=== PATIENT | male | born 1955 | race Caucasian/White ===

== ENCOUNTER 2017-01-18 02:54 | Emergency (ER) | payer MEDICARE, OTHER ==
[~2017-01-18] VITALS: Ht 185.4 cm; Wt 120.8 kg
[~2017-01-18 02:54] MED LIST: ASPI81TA2 PO; ATEN25TA PO; CLIN1CAP6 PO; ERYTOIN10 RIGHT EYE; [UNRECOGNIZED DRUG - OTHER]
[2017-01-18 03:01] VITALS: BP 145/84; PULSE 66; RESP 18; TEMP 98.1; O2SAT 96
[2017-01-18] MEDS ORDERED: PATA0.2S EACH EYE (03:14)
[2017-01-18] MEDS ORDERED: IBUPROFEN 800 MG TAB PO ONE (04:00)
--- NOTE | 2017-01-18 04:10 | PD ---
HPI Chief Complaint: Pain: Acute or Chronic Time Seen by Provider: 03:51 Travel History International Travel<30 days: No Contact w/Intl Traveler<30days: No Traveled to known affect area: No History of Present Illness HPI 61-year-old male presents to the emergency department for complaint of right great toe redness and pain. Patient denies known injury. Patient concerned she may have been stung or bitten by something but no puncture wound garcia. Denies history of known gouty arthritis. Patient has increasing amount of shellfish he seconds and since visiting here the past 3 weeks and denies alcohol use. Patient rates pain as moderate to severe. Patient has taken no medications for symptom relief. Patient denies any fever chills nausea vomiting ascending erythema or groin pain and is not diabetic. PFSH Past Medical History Narrative Medical Arthritis hypertension CAD myocardial infarction stent brain aneurysm clipping; no alcohol use no tobacco use; nursing notes reviewed Hx Anticoagulant Therapy: Yes Arthritis: Yes Cardiac Catheterization: Yes Cardiovascular Problems: Yes (2 IN'S, 2 STENTS, HTN) High Cholesterol: Yes Chest Pain: Yes Coronary Artery Disease: Yes Diabetes: No Diminished Hearing: No GERD: Yes Herniated Disk: Yes Hypertension: Yes Kidney Stones: Yes Musculoskeletal: Yes (CHRONIC BACK PAIN) Immunizations Current: No Migraines: Yes Myocardial Infarction: Yes (X2) Tetanus Vaccination: < 5 Years Influenza Vaccination: No Past Surgical History Coronary Artery Bypass Graft: Yes Coronary Stent: Yes Neurologic Surgery: Yes (BRAIN ANEURYSM) Other Surgery: Yes (RAMON BICEP REPAIR) Social History Alcohol Use: No Tobacco Use: No Substance Use: No Allergies-Medications (Allergen,Severity, Reaction): Coded Allergies: No Known Allergies (Unverified , 01/18/17) Reported Meds & Prescriptions Reported Meds & Active Scripts Active Reported Pataday Opth 0.2% (Olopatadine HCl) 0.2 % Drops 1 Drop EACH EYE DAILY Aspirin EC Low Dose (Aspirin) 81 Mg Tabec 81 Mg PO DAILY Atenolol 25 Mg Tab Unknown Dose PO BID Review of Systems Except as stated in HPI: all other systems reviewed are Neg General / Constitutional: No: Fever, Chills Eyes: No: Visual changes HENT: No: Headaches Cardiovascular: No: Chest Pain or Discomfort Respiratory: No: Shortness of Breath Gastrointestinal: No: Nausea, Vomiting Genitourinary: No: Flank Pain Musculoskeletal: Positive: Limited ROM (right great toe), Pain (right great toe ), No: Myalgias, Arthralgias Skin: No Rash Neurologic: No: Weakness Psychiatric: No: Anxiety Hematologic/Lymphatic: No: Easy Bruising Physical Exam Narrative GENERAL: Well-developed well-nourished male in no acute distress no respiratory distress SKIN: Warm and dry. HEAD: Normocephalic. EYES: No scleral icterus. No injection or drainage. NECK: Supple, trachea midline. No JVD or lymphadenopathy. CARDIOVASCULAR: Regular rate and rhythm without murmurs, gallops, or rubs. RESPIRATORY: Breath sounds equal bilaterally. No accessory muscle use. GASTROINTESTINAL: Abdomen soft, non-tender, nondistended. MUSCULOSKELETAL: No cyanosis, or edema. Attention right foot right great toe area of erythema 5 cm x 3 cm on the dorsal aspect of the right great toe overlying the MTP with tenderness to palpation mild warmth patient has marked increased pain with range of motion no ecchymosis no abrasion no pustule no vesicle no deformity no ascending erythema dorsalis pedis pulse 2+ to palpation foot is warm and pink capillary refill is brisk and less than 2 seconds per digit intact range of motion of the ankle. Data Data Last Documented VS Vital Signs Date Time Temp Pulse Resp B/P Pulse Ox O2 Delivery O2 Flow Rate FiO2 01/18/17 03:01 98.1 66 18 145/84 96 Orders Toe (Min 2vws) (01/18/17 ) Ibuprofen (Motrin) (01/18/17 04:00) [facility] Medical Decision Making Medical Screen Exam Complete: Yes Emergency Medical Condition: Yes Medical Record Reviewed: Yes Interpretation(s) R toe: FINDINGS: Examination of the first digit of the right foot demonstrates no evidence of fracture or dislocation. No radiopaque foreign bodies are seen. Soft tissue swelling. Old injury at the base of the proximal phalanx. CONCLUSION: 1. No acute fracture. 2. Soft tissue swelling. 3. Old injury at the base of proximal phalanx. Mark Jerry MD on January 18, 2017 at 4:25 Board Certified Radiologist. This report was verified electronically. Differential Diagnosis Contact dermatitis, insect bite, focal cellulitis, gouty arthritis Narrative Course Imaging of the right great toe ordered; ibuprofen 800 mg administered Patient informed of imaging results notes some improvement with anti- inflammatory; patient is stable for outpatient management; suspect that this is most likely related to gouty arthritis or focal inflammatory process possible localized focal cellulitis will cover presumptively with Bactrim at this time patient is encouraged to follow-up with primary care provider the next 48 hours or to return to the emergency department for reassessment. Diagnosis Primary Impression: Great toe pain Qualified Code: M79.674 - Great toe pain, right Referrals: Primary Care Physician 2 days Patient Instructions: General Instructions Med/Other Pt SpecificInfo: Prescription(s) given Scripts Ibuprofen 800 Mg [id number] Mg PO Q8H PRN (PAIN GREATER THAN 5) #12 TAB Ref 0 Prov:Nallely Jain MD 01/18/17 Hydrocodone-Acetaminophen (Lortab)5-325 Mg Tab1-2 Tab PO Q6H PRN (PAIN) #10 TAB Ref 0 Prov:Nallely Jain MD 01/18/17 Sulfamethoxazole-Trimethoprim (Bactrim DS)800-160 Mg Tab1 Tab PO BID #14 TAB Ref 0 Prov:Nallely Jain MD 01/18/17 Disposition: 01 DISCHARGE HOME Condition: Stable Nallely Jain MD Jan 18, 2017 04:10
--- NOTE | 2017-01-18 04:27 | RADRPT ---
EXAM DATE/TIME: 01/18/2017 04:01 [facility] COMPARISON: No previous studies available for comparison. INDICATIONS : Right great toe pain and swelling. MEDICAL HISTORY : None. SURGICAL HISTORY : None. ENCOUNTER: Initial ACUITY: 3 days PAIN SCORE: 4/10 LOCATION: Right foot, great toe. FINDINGS: Examination of the first digit of the right foot demonstrates no evidence of fracture or dislocation. No radiopaque foreign bodies are seen. Soft tissue swelling. Old injury at the base of the proximal phalanx. CONCLUSION: 1. No acute fracture. 2. Soft tissue swelling. 3. Old injury at the base of proximal phalanx. Mark Jerry MD on January 18, 2017 at 4:25 Board Certified Radiologist. This report was verified electronically.
[2017-01-18] MEDS ORDERED: BACT800T5 PO (04:39)
[2017-01-18] MEDS ORDERED: HYDR-3533 PO (04:39)
[2017-01-18] MEDS ORDERED: IBUP800T23 PO (04:39)
[2017-01-18] MEDS ORDERED: SULFAMETHOXAZOLE-TRIMETHOPRIM DS 800-160 MG TAB PO ONE (05:00)
[2017-01-18 05:03] VITALS: BP 167/72
== END 2017-01-18 05:05 | disposition home or self-care (01) ==
LOC: PHED 02:54
DX: M79.674 Pain in right toe(s) (principal); I10 Essential (primary) hypertension; E78.00 Pure hypercholesterolemia, unspecified; K21.9 Gastro-esophageal reflux disease without esophagitis; I25.2 Old myocardial infarction; Z87.442 Personal history of urinary calculi; Z79.82 Long term (current) use of aspirin
CPT/HCPCS: 73660; 99284

== ENCOUNTER 2018-01-28 10:20 | Observation (INO) ==
--- NOTE | 2018-01-28 11:07 | ED ---
HPI General Chief Complaint: Chest Pain Stated Complaint: Chest Pains/SOB Time Seen by Provider: 01/28/18 10:42 History of Present Illness HPI narrative: Patient presents to the emergency department with chest pain that started late yesterday. Pain is described as being on the left side, constant, nonradiating, heavy in quality, similar episode in the past and was secondary to the SC, no alleviating or aggravating factors. States that he did not take anything for the pain, but he takes baby aspirin which he did not take today. He denies fever, vomiting, lower extremity edema, recent travel. He does report chills, nausea, numbness and tingling on his face, shortness of breath with the chest pain. Complete Quality Measures for STEMI Alert Patients Related Data Home Medications Medication Instructions Recorded Confirmed amlodipine 10 mg PO DAILY 01/28/18 01/28/18 aspirin 81 mg PO DAILY 01/28/18 01/28/18 atorvastatin 10 mg PO DAILY 01/28/18 01/28/18 docusate sodium 100 mg PO BID 01/28/18 01/28/18 esomeprazole magnesium [Nexium] 20 mg PO DAILY 01/28/18 01/28/18 hydrocodone-acetaminophen 2 tab PO BID PRN 01/28/18 01/28/18 lisinopril 5 mg PO DAILY 01/28/18 01/28/18 metoprolol succinate 50 mg PO DAILY 01/28/18 01/28/18 nitroglycerin [Nitrostat] 0.4 mg SUBLINGUAL Q5-15M PRN 01/28/18 01/28/18 pantoprazole 40 mg PO DAILY 01/28/18 01/28/18 ranitidine HCl 300 mg PO DAILY 01/28/18 01/28/18 sucralfate [Carafate] 1 g PO QID 01/28/18 01/28/18 temazepam [Restoril] 30 mg PO HS PRN 01/28/18 01/28/18 ticagrelor [Brilinta] 90 mg PO BID 01/28/18 01/28/18 trazodone 50 mg PO DAILY 01/28/18 01/28/18 Allergies Allergy/AdvReac Type Severity Reaction Status Date / Time No Known Allergies Allergy NONE Uncoded 01/28/18 10:51 Review of Systems ROS Unobtainable All other systems reviewed negative except as stated in HPI [facility] Medical History Medical History Chronic back pain (Acute) Gastric reflux (Acute) Hypertension (Acute) Injury of biceps brachii muscle (Acute) Insomnia (Acute) MRI-safe endovascular aneurysm coil present (Acute) Myocardial infarct, old (Acute) Ulcer (Acute) Surgical History Surgical History History of heart artery stent (Acute) Social History Social History Substance History: No History of Abuse Smoking Status: Former smoker Tobacco Type: Cigarettes How Often Do You Have a Drink Containing Alcohol: Never Recent Travel in [place] within the Last 8 Weeks: No Recent Out of Country Travel within the Last 8 Weeks: No Exam Narrative Exam Narrative: GENERAL: No acute distress. SKIN: Focused skin assessment warm/dry. HEAD: Atraumatic. Normocephalic. EYES: Pupils equal and round. No scleral icterus. No injection or drainage. ENT: No nasal bleeding or discharge. Mucous membranes pink and moist. NECK: Trachea midline. No JVD. CARDIOVASCULAR: Regular rate and rhythm. No murmur appreciated. RESPIRATORY: No accessory muscle use. Clear to auscultation. Breath sounds equal bilaterally. GASTROINTESTINAL: Abdomen soft, non-tender, nondistended. Hepatic and splenic margins not palpable. MUSCULOSKELETAL: No obvious deformities. No clubbing. No cyanosis. No edema. NEUROLOGICAL: Awake and alert. No obvious cranial nerve deficits. Motor grossly within normal limits. Normal speech. PSYCHIATRIC: Appropriate mood and affect; insight and judgment normal. Course Initial Documented Vital Signs Temperature 97.6 F 01/28/18 10:26 Pulse Rate 71 01/28/18 10:26 Respiratory Rate 22 01/28/18 10:26 Blood Pressure 178/91 H 01/28/18 10:26 Pulse Oximetry 98 01/28/18 10:26 Last Documented Vital Signs Temperature 97.6 F 01/28/18 10:26 Pulse Rate 68 01/28/18 12:41 Respiratory Rate 20 01/28/18 12:41 Blood Pressure 166/95 H 01/28/18 12:41 Pulse Oximetry 97 01/28/18 12:41 Medical Decision Making [facility] Narrative Medical decision making narrative: Patient with a known cardiac history presents to the emergency department with left-sided chest pain that started yesterday. Patient placed on a environmental monitoring specialist, continuous pulse ox, and IV access obtained. EKG, chest x-ray and labs ordered. She given 324 mg p.o. aspirin and 1, 0.4 mg sublingual nitroglycerin. CXR showed no acute abnormality. Platelets decreased and CK-MB increase. Patient advised that his chest pain is much better after 1 sublingual nitroglycerin, but he still has slight chest pain. Will give another 0.4 mg sublingual nitroglycerin, (BP 166/ 95) and admit the chest pain center. Lab Data Result diagrams: 01/28/18 10:56 01/28/18 10:56 Lab Results 01/28/18 01/28/18 01/28/18 Range/Units 10:56 10:56 10:56 WBC 7.9 (4.0-11.0) th/mm3 RBC 4.62 (4.50-5.90) mil/mm3 Hgb 15.0 (13.0-17.0) gm/dL Hct 42.5 (39.0-51.0) % MCV 91.8 (80.0-100.0) fL MCH 32.5 (27.0-34.0) pg MCHC 35.4 (32.0-36.0) % RDW 12.7 (11.6-17.2) % Plt Count 146 L (150-450) th/mm3 MPV 8.9 (7.0-11.0) fL Neut % (Auto) 73.5 H (16.0-70.0) % Lymph % (Auto) 15.9 (9.0-44.0) % [place] % (Auto) 8.5 H (0.0-8.0) % Eos % (Auto) 1.4 (0.0-4.0) % Baso % (Auto) 0.7 (0.0-2.0) % Neut # (Auto) 5.8 (1.8-7.7) th/mm3 Lymph # (Auto) 1.3 (1.0-4.8) th/mm3 [place] # (Auto) 0.7 (0.0-0.9) th/mm3 Eos # (Auto) 0.1 (0.0-0.4) th/mm3 Baso # (Auto) 0.1 (0.0-0.2) th/mm3 WBC Differential . Differential Comment Auto diff final PT 10.0 (9.8-11.6) sec INR 1.0 Ratio APTT 24.5 (24.3-30.1) sec Sodium 143 (136-145) meq/L Potassium 4.1 (3.5-5.1) meq/L Chloride 110 H (98-107) meq/L Carbon Dioxide 23.4 (21.0-32.0) meq/L Anion Gap 10 (5-15) meq/L BUN 18 (7-18) mg/dL Creatinine 1.03 (0.60-1.30) mg/dL Estimated GFR 73 L (>89) mL/min Random Glucose 90 (74-106) mg/dL Calcium 8.5 (8.5-10.1) mg/dL Magnesium 2.2 (1.5-2.5) mg/dL Total Bilirubin 0.4 (0.2-1.0) mg/dL AST 21 (15-37) U/L ALT 48 (12-78) U/L Alkaline Phosphatase 103 (45-117) U/L Total Creatine Kinase 258 (39-308) U/L CK-MB (CK-2) 4.5 H (0.5-3.6) ng/mL Troponin I Less than 0.02 L (0.02-0.05) ng/mL B-Natriuretic Peptide (0-100) pg/mL Total Protein 6.9 (6.4-8.2) g/dL Albumin 3.6 (3.4-5.0) g/dL 01/28/18 Range/Units 10:56 WBC (4.0-11.0) th/mm3 RBC (4.50-5.90) mil/mm3 Hgb (13.0-17.0) gm/dL Hct (39.0-51.0) % MCV (80.0-100.0) fL MCH (27.0-34.0) pg MCHC (32.0-36.0) % RDW (11.6-17.2) % Plt Count (150-450) th/mm3 MPV (7.0-11.0) fL Neut % (Auto) (16.0-70.0) % Lymph % (Auto) (9.0-44.0) % [place] % (Auto) (0.0-8.0) % Eos % (Auto) (0.0-4.0) % Baso % (Auto) (0.0-2.0) % Neut # (Auto) (1.8-7.7) th/mm3 Lymph # (Auto) (1.0-4.8) th/mm3 [place] # (Auto) (0.0-0.9) th/mm3 Eos # (Auto) (0.0-0.4) th/mm3 Baso # (Auto) (0.0-0.2) th/mm3 WBC Differential Differential Comment PT (9.8-11.6) sec INR Ratio APTT (24.3-30.1) sec Sodium (136-145) meq/L Potassium (3.5-5.1) meq/L Chloride (98-107) meq/L Carbon Dioxide (21.0-32.0) meq/L Anion Gap (5-15) meq/L BUN (7-18) mg/dL Creatinine (0.60-1.30) mg/dL Estimated GFR (>89) mL/min Random Glucose (74-106) mg/dL Calcium (8.5-10.1) mg/dL Magnesium (1.5-2.5) mg/dL Total Bilirubin (0.2-1.0) mg/dL AST (15-37) U/L ALT (12-78) U/L Alkaline Phosphatase (45-117) U/L Total Creatine Kinase (39-308) U/L CK-MB (CK-2) (0.5-3.6) ng/mL Troponin I (0.02-0.05) ng/mL B-Natriuretic Peptide 12 (0-100) pg/mL Total Protein (6.4-8.2) g/dL Albumin (3.4-5.0) g/dL Imaging Data Radiologist's impression: ITS Impressions Chest X-Ray 01/28/18 11:02 CONCLUSION: No acute cardiopulmonary disease. ECG Data EKG Prior to Arrival: No Attestation: I personally reviewed and interpreted this ECG as follows: (Sinus rhythm, rate 61, left axis deviation, T-wave inversion in lead III, QTc 425,) Discharge Plan Discharge Disposition Patient Disposition: 30 Still Patient Discharge Condition Condition: Stable Discharge Details Diagnosis: Chest pain Physicians Team ED Provider: Selene Skaggs Primary Care Provider: Primary Care Physici,No Rxs /Orders / Referrals /Forms Prescriptions: No Action trazodone 50 mg Tablet 50 mg PO DAILY RF: 0 atorvastatin 10 mg Tablet 10 mg PO DAILY RF: 0 metoprolol succinate 50 mg Tablet Extended Release 24 Hr 50 mg PO DAILY RF: 0 ranitidine HCl 300 mg Tablet 300 mg PO DAILY RF: 0 sucralfate [Carafate] 1 gram Tablet 1 g PO QID RF: 0 hydrocodone-acetaminophen 10-325 mg Tablet 2 tab PO BID PRN (Reason: Pain) RF: 0 temazepam [Restoril] 30 mg Capsule 30 mg PO HS PRN (Reason: Insomnia) RF: 0 amlodipine 10 mg Tablet 10 mg PO DAILY RF: 0 pantoprazole 40 mg Tablet,Delayed Release (Dr/Ec) 40 mg PO DAILY RF: 0 nitroglycerin [Nitrostat] 0.4 mg Tablet, Sublingual 0.4 mg SUBLINGUAL Q5-15M PRN (Reason: Chest Pain) RF: 0 docusate sodium 100 mg Capsule 100 mg PO BID RF: 0 aspirin 81 mg Tablet,Chewable 81 mg PO DAILY RF: 0 lisinopril 5 mg Tablet 5 mg PO DAILY RF: 0 esomeprazole magnesium [Nexium] 20 mg Capsule,Delayed Release(Dr/Ec) 20 mg PO DAILY RF: 0 ticagrelor [Brilinta] 90 mg Tablet 90 mg PO BID RF: 0 Discharge Instructions Patient Printed Instructions: Chest Pain (ED) Discharge Interventions Interventions: Vital Signs Last Done: 01/28/18 12:41 Status ED Status: With Doctor
[2018-01-28 11:38] LABS: Baso # (Auto) 0.1 th/mm3 (0.0-0.2); Baso % (Auto) 0.7 % (0.0-2.0); Eos # (Auto) 0.1 th/mm3 (0.0-0.4); Eos % (Auto) 1.4 % (0.0-4.0); Hematocrit 42.5 % (39.0-51.0); Lymph # (Auto) 1.3 th/mm3 (1.0-4.8); Lymph % (Auto) 15.9 % (9.0-44.0); Mean Corpuscular HGB Conc 35.4 % (32.0-36.0); Mean Corpuscular Hemoglobin 32.5 pg (27.0-34.0); Mean Corpuscular Volume 91.8 fL (80.0-100.0); Mean Platelet Volume 8.9 fL (7.0-11.0); Mono # (Auto) 0.7 th/mm3 (0.0-0.9); Mono % (Auto) 8.5 % (0.0-8.0); Neut # (Auto) 5.8 th/mm3 (1.8-7.7); Neut % (Auto) 73.5 % (16.0-70.0); Platelet Count 146 th/mm3 (150-450); Red Blood Count 4.62 mil/mm3 (4.50-5.90); Red Cell Distribution Width 12.7 % (11.6-17.2); White Blood Count 7.9 th/mm3 (4.0-11.0)
[2018-01-28 11:50] LABS: Activated Partial Thrombo Time 24.5 sec (24.3-30.1)
[2018-01-28 11:57] LABS: Albumin 3.6 g/dL (3.4-5.0); Anion Gap 10 meq/L (5-15); Aspartate Aminotransferase 21 U/L (15-37); Blood Urea Nitrogen 18 mg/dL (7-18); Calcium 8.5 mg/dL (8.5-10.1); Carbon Dioxide 23.4 meq/L (21.0-32.0); Chloride 110 meq/L (98-107); Glomerular Filtration Rate 73 mL/min (>89); Glucose,Random 90 mg/dL (74-106); Magnesium 2.2 mg/dL (1.5-2.5); Potassium 4.1 meq/L (3.5-5.1); Sodium 143 meq/L (136-145)
[2018-01-28 12:01] LABS: Alanine Aminotransferase 48 U/L (12-78); Alkaline Phosphatase 103 U/L (45-117); Creatine Kinase 258 U/L (39-308); Total Protein 6.9 g/dL (6.4-8.2)
--- NOTE | 2018-01-28 12:02 | XR ---
EXAM DATE: 01/28/2018 11:17 AM EDT AGE/SEX: 62 years / Male INDICATIONS: Chest pain CLINICAL DATA: This is the patient's initial encounter. Patient reports that signs and symptoms have been present for 1 day and indicates a pain score of 6/10. MEDICAL/SURGICAL HISTORY: Heart disease. . Cardiac stents COMPARISON: [facility], CHEST SINGLE AP, 02/29/2016. . FINDINGS: The cardiac silhouette is normal in transverse diameter. The lungs are free of acute parenchymal opac ity. No effusions are identified. CONCLUSION: No acute cardiopulmonary disease. Electronically signed by: Brad Dooley MD 01/28/2018 12:01 PM EDT
[2018-01-28 12:14] LABS: Creatine Kinase MB 4.5 ng/mL (0.5-3.6)
[2018-01-28] MEDS ORDERED: Temazepam 15 MG Capsule PO PRN (13:22)
--- NOTE | 2018-01-28 13:46 | P.HPCA ---
History of Present Illness Primary Care Physician: No Primary Care Physician Chief Complaint: Chest pain History of Present Illness: This is a 62-year-old male with history of CAD status post 2 stents most recently July 2015 of the proximal LAD, hypertension, hyperlipidemia, history of brain aneurysm repaired with coil in 2002, GERD, and chronic back pain presents to ED with complaint of chest discomfort. Patient states that over the last 3 days he has been very fatigued however yesterday he developed a discomfort in left side of his chest late afternoon while preparing a dinner. Describes as a heaviness and he was short of breath. Was a 7 out of 10. Lasted 15-20 minutes. He is also dizzy. Denies feeling and nauseous. Then the discomfort recurred this morning while he was watching TV soon after waking up. Also left-sided heaviness with discomfort being about a 9 out of 10 with shortness breath, nausea, and diaphoresis and still very fatigued. States this felt similar to his first CT. This concerned him and decided to come to ED. 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 States he has had no other heart catheterization since the stent was placed August 03. Denies recent illness. Denies fevers or chills. He has had 2 heart catheterizations with stenting each time was recently July 2015. He is also had cerebral aneurysm repaired with a Quill in 2002. Biceps tendon repair. Patient quit smoking 6 months ago but prior that he was smoking one half packs a series daily for 30 years. There is family history of CAD. - Diagnosis (1) Chest pain (2) CAD (coronary artery disease) (3) History of coronary artery stent placement (4) Hypertension (5) Hyperlipidemia (6) GERD (gastroesophageal reflux disease) (7) Chronic back pain Inpatient Certification: I certify that the inpatient services were ordered in accordance with Medicare regulations governing the order. This includes certification that hospital inpatient services are reasonable and necessary and in the case of services not specified as inpatient-only under 42 CFR 419.22(n), that they are appropriately provided as inpatient services in accordance to with the 2-midnight benchmark under 43 CFR 412.3(e) Review of Systems General: Patient denies fevers, chills, and recent travel. HEENT: Patient denies headache, sore throat, difficulty swallowing. Cardiovascular: Has the chest discomfort as mentioned above. Denies sensation of heart beating rapidly or irregularly. No syncope. He was diaphoretic this morning. Respiratory: He was short of breath. Denies inspirational chest discomfort. Denies coughing wheezing or hemoptysis. GI: He was nauseous. Patient denies vomiting, diarrhea, abdominal pain, bloody stools. Musculoskeletal: Patient denies joint pain or edema. Denies calf pain or edema. Neurovascular: Patient denies numbness, tingling, weakness in extremities. Denies headache. Endocrine: Denies polyuria and polydipsia. Hematologic: Denies easy bruising. Skin: Denies rash or itching. PMFSH - History History Provided By: Patient, Family Member - Medical History Medical History: Medical History (Last Updated 01/28/18 @ 13:33 by SARAHY Hoyos) Chronic back pain Gastric reflux Hypertension Insomnia MRI-safe endovascular aneurysm coil present Myocardial infarct, old No history of diabetes mellitus Ulcer - Surgical History Surgical History: Surgical History (Last Updated 01/28/18 @ 11:07 by Monique Menjivar RN) History of heart artery stent - Tobacco History Tobacco Use In Past 30 Days: No Smoking Status: Former smoker Tobacco Type: Cigarettes - Alcohol History How Often Do You Have a Drink Containing Alcohol: Never - Substance Use History Substance History: No History of Abuse - Travel History Recent Travel in the [place] Within the Last 8 Weeks: No Recent Travel Out of the Country Within the Last 8 Weeks: No - Immunization History Tetanus Immunization: Unsure Hx Influenza Vaccine This Season: No Medications and Allergies Active Medications: Active Medications Hydrocodone Bitart/Acetaminophen ([place] 10/325) 2 tab PO BID PRN PRN Reason: PAIN SCALE 5-10/SEVERE COUGH Amlodipine Besylate (Norvasc) 10 mg PO DAILY [facility] Aspirin (Aspirin) 325 mg PO DAILY [facility] Atorvastatin Calcium (Lipitor) 10 mg PO DAILY [facility] Docusate Sodium (Colace) 100 mg PO BID [facility] Lisinopril (Prinivil) 5 mg PO DAILY [facility] Metoprolol Succinate (Toprol Xl) 50 mg PO DAILY [facility] Non-Formulary Medication (Ranitidine Hcl [Ranitidine Hcl]) 300 mg PO DAILY [facility] Non-Formulary Medication (Temazepam [Restoril]) 30 mg PO HS PRN PRN Reason: Insomnia Ondansetron HCl (Zofran Inj) 4 mg IV.PUSH Q6H PRN PRN Reason: NAUSEA Pantoprazole Sodium (Protonix) 40 mg PO DAILY [facility] Sodium Chloride (Ns Flush) 2 ml IV.FLUSH UNSCH PRN PRN Reason: FLUSH AFTER USING IV ACCESS Sodium Chloride (Ns Flush) 2 ml IV.FLUSH PRN PRN PRN Reason: FLUSH AFTER USING IV ACCESS Sodium Chloride (Ns Flush) 2 ml IV.FLUSH BID [facility] Allergies Allergy/AdvReac Type Severity Reaction Status Date / Time No Known Allergies Allergy NONE Uncoded 01/28/18 10:51 Home Medications Medication Instructions Recorded Confirmed Type amlodipine 10 mg PO DAILY 01/28/18 01/28/18 History aspirin 81 mg PO DAILY 01/28/18 01/28/18 History atorvastatin 10 mg PO DAILY 01/28/18 01/28/18 History docusate sodium 100 mg PO BID 01/28/18 01/28/18 History esomeprazole magnesium [Nexium] 20 mg PO DAILY 01/28/18 01/28/18 History hydrocodone-acetaminophen 2 tab PO BID PRN 01/28/18 01/28/18 History lisinopril 5 mg PO DAILY 01/28/18 01/28/18 History metoprolol succinate 50 mg PO DAILY 01/28/18 01/28/18 History nitroglycerin [Nitrostat] 0.4 mg SUBLINGUAL Q5-15M PRN 01/28/18 01/28/18 History pantoprazole 40 mg PO DAILY 01/28/18 01/28/18 History ranitidine HCl 300 mg PO DAILY 01/28/18 01/28/18 History sucralfate [Carafate] 1 g PO QID 01/28/18 01/28/18 History temazepam [Restoril] 30 mg PO HS PRN 01/28/18 01/28/18 History ticagrelor [Brilinta] 90 mg PO BID 01/28/18 01/28/18 History trazodone 50 mg PO DAILY 01/28/18 01/28/18 History Exam Vital signs: Vital Signs 01/28/18 10:26 01/28/18 10:38 01/28/18 11:02 Temperature 97.6 F Pulse Rate 71 84 89 Respiratory Rate 22 26 H Blood Pressure 178/91 H 181/95 H Pulse Oximetry 98 96 96 01/28/18 12:41 Temperature Pulse Rate 68 Respiratory Rate 20 Blood Pressure 166/95 H Pulse Oximetry 97 Intake & Output 01/27/18 01/28/18 01/28/18 18:59 06:59 18:59 Weight 120.202 kg Narrative: GENERAL: This is a well-nourished, well-developed patient, in no apparent distress. Patient speaks in clear complete sentences. Patient is pleasant. HEENT: Head is atraumatic and normocephalic. Neck is supple without lymphadenopathy and trachea is midline. No JVD or carotid bruits. CARDIOVASCULAR: Regular rate and rhythm without murmurs, gallops, or rubs. RESPIRATORY: Clear to auscultation. Breath sounds equal bilaterally. No wheezes , rales, or rhonchi. Chest wall is nontender. No use of accessory muscles. GASTROINTESTINAL: Abdomen is nontender, nondistended. Abdomen soft. No obvious pulsatile mass or bruit. No CVA tenderness. Strong femoral pulses bilaterally. Normal bowel sounds in all quadrants. MUSCULOSKELETAL: Patient is moving upper and lower extremities freely. No calf tenderness or edema, no Homans sign. Strong pulses in upper and lower extremities. NEUROLOGICAL: Patient is alert and oriented. Cranial nerves 2-12 are grossly intact. No focal deficits and speech is clear. SKIN: No rash and turgor is normal. Results 01/28/18 10:56 01/28/18 10:56 Cardiac Enzymes 01/28/18 01/28/18 Range/Units 10:56 10:56 AST 21 (15-37) U/L CK-MB (CK-2) 4.5 H (0.5-3.6) ng/mL Troponin I Less than 0.02 L (0.02-0.05) ng/mL B-Natriuretic Peptide 12 (0-100) pg/mL Coagulation 01/28/18 01/28/18 Range/Units 10:56 10:56 PT 10.0 (9.8-11.6) sec APTT 24.5 (24.3-30.1) sec B-Natriuretic Peptide 12 (0-100) pg/mL CBC 01/28/18 Range/Units 10:56 WBC 7.9 (4.0-11.0) th/mm3 RBC 4.62 (4.50-5.90) mil/mm3 Hgb 15.0 (13.0-17.0) gm/dL Hct 42.5 (39.0-51.0) % Plt Count 146 L (150-450) th/mm3 Neut # (Auto) 5.8 (1.8-7.7) th/mm3 Lymph # (Auto) 1.3 (1.0-4.8) th/mm3 [place] # (Auto) 0.7 (0.0-0.9) th/mm3 Eos # (Auto) 0.1 (0.0-0.4) th/mm3 Baso # (Auto) 0.1 (0.0-0.2) th/mm3 Comprehensive Metabolic Panel 01/28/18 Range/Units 10:56 Sodium 143 (136-145) meq/L Potassium 4.1 (3.5-5.1) meq/L Chloride 110 H (98-107) meq/L Carbon Dioxide 23.4 (21.0-32.0) meq/L BUN 18 (7-18) mg/dL Creatinine 1.03 (0.60-1.30) mg/dL Calcium 8.5 (8.5-10.1) mg/dL AST 21 (15-37) U/L ALT 48 (12-78) U/L Alkaline Phosphatase 103 (45-117) U/L Total Protein 6.9 (6.4-8.2) g/dL Albumin 3.6 (3.4-5.0) g/dL Intake and Output 01/27/18 01/28/18 01/28/18 22:59 06:59 14:59 Other: Weight 120.202 kg Patient Weight 01/29/18 06:59 Weight 120.202 kg EKG interpretations - EKG EKG shows: sinus rhythm (Initial EKG is sinus rhythm without significant ST segment depression or elevation. Muscular T-wave changes in lead III and aVF.) Caprini VTE Risk Assessment Caprini VTE Risk Assessment: Moderate/High Risk (score >= 2) Caprini Risk Assessment Model: Point Value = 1 Point Value = 2 Point Value = 3 Point Value = 5 Age 41-60 Minor surgery BMI > 25 kg/m2 Swollen legs Varicose veins or History of unexplained or recurrent spontaneous Oral contraceptives or hormone replacement Sepsis (< 1 month) Serious lung disease, including pneumonia (< 1 month) Abnormal pulmonary function Acute myocardial infarction Congestive heart failure (< 1 month) History of inflammatory bowel disease Medical patient at bed rest Age 61-74 Arthroscopic surgery Major open surgery (> 45 min) Laparoscopic surgery (> 45 min) Malignancy Confined to bed (> 72 hours) Immobilizing plaster cast Central venous access Age >= 75 History of VTE Family history of VTE Factor V Leiden Prothrombin [id number] Lupus anticoagulant Anticardiolipin antibodies Elevated serum homocysteine Heparin-induced thrombocytopenia Other congenital or acquired thrombophilia Stroke (< 1 month) Elective arthroplasty Hip, pelvis, or leg fracture Acute spinal cord injury (< 1 month) Prophylaxis Regimen: Total Risk Factor Score Risk Level Prophylaxis Regimen 0-1 Low Early ambulation 2 Moderate Order ONE of the following: *Sequential Compression Device (SCD) *Heparin 5000 units SQ BID 3-4 Higher Order ONE of the following medications: *Heparin 5000 units SQ TID *Enoxaparin/Lovenox 40 mg SQ daily (WT < 150 kg, CrCl > 30 mL/min) *Enoxaparin/Lovenox 30 mg SQ daily (WT < 150 kg, CrCl > 10-29 mL/min) *Enoxaparin/Lovenox 30 mg SQ BID (WT < 150 kg, CrCl > 30 mL/min) AND/OR *Sequential Compression Device (SCD) 5 or more Highest Order ONE of the following medications: *Heparin 5000 units SQ TID (Preferred with Epidurals) *Enoxaparin/Lovenox 40 mg SQ daily (WT < 150 kg, CrCl > 30 mL/min) *Enoxaparin/Lovenox 30 mg SQ daily (WT < 150 kg, CrCl > 10-29 mL/min) *Enoxaparin/Lovenox 30 mg SQ BID (WT < 150 kg, CrCl > 30 mL/min) AND *Sequential Compression Device (SCD) Assessment and Plan - Assessment (1) Chest pain Code(s): R07.9 - Chest pain, unspecified Status: Acute (2) CAD (coronary artery disease) Code(s): I25.10 - Atherosclerotic heart disease of [place] coronary artery without angina pectoris Status: Acute (3) History of coronary artery stent placement Code(s): Z95.5 - Presence of coronary angioplasty implant and graft Status: Acute (4) Hypertension Code(s): I10 - Essential (primary) hypertension Status: Acute (5) Hyperlipidemia Code(s): E78.5 - Hyperlipidemia, unspecified Status: Acute (6) GERD (gastroesophageal reflux disease) Code(s): K21.9 - Gastro-esophageal reflux disease without esophagitis Status: Acute (7) Chronic back pain Code(s): M54.9 - Dorsalgia, unspecified; G89.29 - Other chronic pain Status: Acute - Plan * Chest pain: Patient will continue to have serial cardiac enzymes and EKGs for ruling out purposes. Patient was seen by Dr. Brad Yan of cardiology in the chest pain center. * CAD: Patient has history of CAD with stents. Continues medications. Likely to have chemical stress test today. 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 He should return to ED for interval issues. * Hypertension: Continue medication. * Hyperlipidemia: Continue medication. * GERD: Continue medication. Patient is stable at this time. He is agreeable to this plan. (1) Chest pain Qualifiers: Chest pain type: unspecified Qualified Code(s): R07.9 - Chest pain, unspecified
[2018-01-28] MEDS ORDERED: Famotidine 20 MG Tablet PO SCH (15:00)
[2018-01-28] MEDS ORDERED: Regadenoson Inj 0.4 MG/5 ML Syringe IV.PUSH ONE (15:05)
[2018-01-28 15:12] LABS: Creatine Kinase 219 U/L (39-308)
[2018-01-28 15:24] LABS: Creatine Kinase MB 4.4 ng/mL (0.5-3.6)
--- NOTE | 2018-01-28 16:17 | NM ---
EXAM DATE: 01/28/2018 4:06 PM EDT AGE/SEX: 62 years / Male INDICATIONS:Coronary artery disease. Myocardial infarction Chest pain. CLINICAL DATA: This is the patient's initial encounter. Patient reports that signs and symptoms have been present for 1 day and indicates a pain score of 2/10. MEDICAL/SURGICAL HISTORY: Hypertension. Coronary artery stent. COMPARISON: No prior exams available for comparison. DOSE: 11 mCi Tc 99m Myoview at rest 35 mCi [id number] at stress 0.4 mg Lexiscan STRESS SYMPTOMS: None. EJECTION FRACTION: 45 % TECHNIQUE: The patient underwent pharmacologic stress with infusion of prescribed dose. Continuous ECG tracing was monitored during stress. Gated SPECT imaging was performed after stress and conventi onal SPECT imaging was performed at rest. The examination was performed on a SPECT/CT scanner, both attenuation and non-corrected datasets were reviewed. FINDINGS: Distribution: The maximum perfused segment at stress is in the lateral and inferior Perfusion Study: The pattern of perfusion at stress is within normal limits. Gated Study: There are intact wall motion and wall thickening without hypokinetic or dyskinetic segm ents. Is mild ventricular cavity dilatation. The ejection fraction is calculated at 45%. RISK CATEGORY: Low (<1% Annual Motality Rate) CONCLUSION: 1. Negative for stress-induced ischemia. Depressed ejection fraction 45% with mild dilatation of markel tricular cavity. Electronically signed by: Mike Sparrow MD 01/28/2018 4:16 PM EDT
[2018-01-28] MEDS ORDERED: Docusate Sodium 100 MG Capsule PO SCH (21:00)
--- NOTE | 2018-01-29 08:26 | ECG ---
Date Performed: 01/28/2018 Time Performed: 14:25:01 PTAGE: 62 years EKG: Sinus rhythm NORMAL ECG PREVIOUS TRACING : 01/28/2018 10.46 DOCTOR: Brenda Montgomery Interpretating Date/Time 01/29/2018 08:21:14
--- NOTE | 2018-01-29 08:38 | ECG ---
Date Performed: 01/28/2018 Time Performed: 10:46:24 PTAGE: 62 years EKG: Sinus rhythm INTRAVENTRICULAR CONDUCTION DELAY ABNORMAL ECG NO PREVIOUS TRACING DOCTOR: Brenda Montgomery Interpretating Date/Time 01/29/2018 08:37:01
[2018-01-29] MEDS ORDERED: amLODIPine 10 MG Tablet PO SCH (09:00)
[2018-01-29] MEDS ORDERED: Aspirin 325 MG Tablet PO SCH (09:00)
[2018-01-29] MEDS ORDERED: Lisinopril 5 MG Tablet PO SCH (09:00)
--- NOTE | 2018-04-19 13:26 | TR ---
Date Performed: 01/28/2018 Time Performed: 15:13:06 DOCTOR: Nelson Green DRUG LIST: CLINICAL HISTORY: REASON FOR TEST: REASON FOR ENDING: OBSERVATION: CONCLUSION: Lexiscan stress test was performed under standard four minute protocol. Radionuclide was injected one minute prior to ending the test. No electrocardiographic abormalities were present to suggest ischemia. Nuclear imaging and interpretation are pending. COMMENTS:
== END 2018-01-28 17:53 | disposition home or self-care (01) ==
LOC: NEDA 10:20 → NEPFCDU 10:20 → NEPE 10:20 → NEPFCDU 14:59
PROVIDERS: ADMIT Internal Medicine Cardiovascular Disease; ATTEND Internal Medicine Cardiovascular Disease
DX: I10 Essential (primary) hypertension; I25.2 Old myocardial infarction; G89.29 Other chronic pain; R53.83 Other fatigue; R11.0 Nausea; Z95.5 Presence of coronary angioplasty implant and graft; Z79.82 Long term (current) use of aspirin; R42 Dizziness and giddiness; E78.5 Hyperlipidemia, unspecified; I25.10 Atherosclerotic heart disease of native coronary artery without angina pectoris; R06.02 Shortness of breath; K21.9 Gastro-esophageal reflux disease without esophagitis; F17.210 Nicotine dependence, cigarettes, uncomplicated; R07.89 Other chest pain; M54.9 Dorsalgia, unspecified